=== PATIENT | male | born 1995 | race Hispanic/Latino ===

== ENCOUNTER 2019-08-16 09:29 | Emergency (ER) | payer SELFPAY ==
[2019-08-16] MEDS ORDERED: DIPHENHYDRAMINE HCL 25 MG CAPSULE ONE (09:52)
== END 2019-08-16 10:00 | disposition home or self-care (01) ==
LOC: EDH 09:29
DX: L40.9 Psoriasis, unspecified (principal); Z87.891 Personal history of nicotine dependence
CPT/HCPCS: 99283; Q0163

== ENCOUNTER 2022-10-02 13:26 | Emergency (ER) | payer OTHER | END 2022-10-02 14:17 | disposition left against medical advice (07) | LOC: EDH 13:26 | DX: R69 Illness, unspecified (principal); Z53.21 Procedure and treatment not carried out due to patient leaving prior to being seen by health care provider ==